=== PATIENT | female | born 1950 | race Caucasian/White ===

== ENCOUNTER → 2016-12-13 | Outpatient (CLI) | payer MEDICARE ==
--- NOTE | 2016-12-13 14:43 | RAD ---
Indication vaginal prolapse. Grayscale imaging was performed. Transabdominal scans were obtained. Transvaginal scans were not. The uterus was prolapsed into the vagina during the exam. Only the fundus of the uterus was seen. The body of the uterus could not be visualized. The ovaries appeared unremarkable. IMPRESSION: Uterine prolapse. As a result there was little visualization of the uterus. The ovaries appeared unremarkable.
--- NOTE | 2016-12-13 15:29 | RAD ---
DATE: 12/13/2016 EXAM: DIGITAL SCREEN BILAT W/CAD HISTORY: Screening COMPARISON: None. This is a new baseline exam. This study was interpreted with the benefit of Computerized Aided Detection (CAD). FINDINGS: Breast Density: HETERO The breast parenchyma Is heterogeneiously dense, which could reduce sensitivity of mammography. Breast parenchyma level C. There is some increased density in the periareolar position of the right breast relative to the left. This is most apparent on the CC image. A few punctate calcifications are seen scattered in this area of increased density. Coned compression imaging as well as an ML view are advised as well as targeted ultrasound. The left breast appears unremarkable. IMPRESSION: Increased density in the right breast relative to the left. Additional imaging suggested as outlined above. BI-RADS CATEGORY: 0 INCOMPLETE: NEED ADDITIONAL IMAGING EVAULATION AND/OR PRIOR MAMMOGRAMS FOR COMPARISON RECOMMENDED FOLLOW-UP: ADD ADDITIONAL IMAGING PQRS compliance statement: Patient information was entered into a reminder system with a target due date soon for the next mammogram. Mammography is a sensitive method for finding small breast cancers, but it does not detect them all and is not a substitute for careful clinical examination. A negative mammogram does not negate a clinically suspicious finding and should not result in delay in biopsying a clinically suspicious abnormality. "Our facility is accredited by the [employer] Mammography Program."
== END | disposition home or self-care (01) ==
LOC: US 13:38
PROVIDERS: ATTEND Nurse Practitioner Family
DX: Z12.31 Encounter for screening mammogram for malignant neoplasm of breast (principal); N81.4 Uterovaginal prolapse, unspecified
CPT/HCPCS: 76856; G0202; 77067

== ENCOUNTER → 2016-12-23 | Outpatient (CLI) | payer MEDICARE ==
--- NOTE | 2016-12-23 11:40 | RAD ---
DATE: 12/23/2016 EXAM: BREAST RIGHT, DIGITAL DIAGNOSTIC RT HISTORY: Call back for density in the right breast COMPARISON: 12/13/2016 This study was interpreted with the benefit of Computerized Aided Detection (CAD). FINDINGS: Breast Density: HETERO The breast parenchyma Is heterogeneiously dense, which could reduce sensitivity of mammography. Breast parenchyma level C. Benign-appearing scattered calcifications identified in the right breast. There is a small nodule identified in the retroareolar region of the right breast containing small calcification On the targeted views of the ultrasound tiny cystic foci identified at 10:00, 11:00, 12:00 position in the retroareolar region with the largest measuring 4.7 mm probably cysts IMPRESSION: Probably benign findings. Recommend right breast mammogram follow-up in 6 months. BI-RADS CATEGORY: 3 PROBABLE BENIGN-SHORT TERM F/U RECOMMENDED FOLLOW-UP: 6M 6 MONTH FOLLOW-UP PQRS compliance statement: Patient information was entered into a reminder system with a target due date 06/22/2017 for the next mammogram. Mammography is a sensitive method for finding small breast cancers, but it does not detect them all and is not a substitute for careful clinical examination. A negative mammogram does not negate a clinically suspicious finding and should not result in delay in biopsying a clinically suspicious abnormality. "Our facility is accredited by the [employer] Mammography Program."
== END | disposition home or self-care (01) ==
LOC: US 09:12
PROVIDERS: ATTEND Nurse Practitioner Family
DX: N63 Unspecified lump in breast (principal); R92.1 Mammographic calcification found on diagnostic imaging of breast
CPT/HCPCS: 76641; G0206; 77065

== ENCOUNTER → 2017-03-07 | Outpatient (CLI) | payer MEDICARE ==
--- NOTE | 2017-03-07 16:17 | RAD ---
Exam: Bone densitometry. Clinical Indication: Postmenopausal screening Technique: Bone Densitometry was performed with dual photon absorption of the lumbar spine and proximal femur. This is a baseline exam. Findings: Lumbar Spine: Bone density is 0.961 g/cm2 for L1-L4. T-Score is -1.8 and Z-score -0.6. Age-matched percentage is 93 %. Left Femur: Bone density is 0.628 g/cm2. T-Score is -3.1 and Z-score -2.2. Age-matched percentage is 70%. Impression: 1. Osteoporosis in the left hip. 2. Osteopenia in the lumbar spine.
== END | disposition home or self-care (01) ==
LOC: DXRAD 15:11
PROVIDERS: ATTEND Specialist
DX: Z00.01 Encounter for general adult medical examination with abnormal findings (principal); Z78.0 Asymptomatic menopausal state; M85.88 Other specified disorders of bone density and structure, other site; Z90.710 Acquired absence of both cervix and uterus; M81.0 Age-related osteoporosis without current pathological fracture
CPT/HCPCS: 77080

== ENCOUNTER → 2017-07-24 | Outpatient (CLI) | payer MEDICARE ==
--- NOTE | 2017-07-24 10:54 | RAD ---
DATE: 07/24/2017 EXAM: MAMMO JEFFRY DIAG RT HISTORY: Follow-up breast nodule COMPARISON: 12/23/2016 This study was interpreted with the benefit of Computerized Aided Detection (CAD). The breast parenchyma is heterogeneously dense, which could reduce sensitivity of mammography. Breast parenchyma level C. FINDINGS: 2-D and 3-D tomosynthesis imaging was performed in CC and MLO projections. The fibroglandular tissues are nodular in character. The small nodule containing a benign type calcification seen in the retroareolar region of the right breast on the previous study is not clearly visualized on today's exam. The previous breast ultrasound demonstrated the presence of multiple small breast cysts. No new or enlarging nodule is seen. No spiculated mass or architectural distortion is evident. IMPRESSION: Stable mammograms without evidence of malignancy. Bilateral mammography in 6 months and then at yearly intervals is suggested. BI-RADS CATEGORY: 2 BENIGN FINDING(S) RECOMMENDED FOLLOW-UP: 6M 6 MONTH FOLLOW-UP PQRS compliance statement: Patient information was entered into a reminder system with a target due date for the next mammogram. Mammography is a sensitive method for finding small breast cancers, but it does not detect them all and is not a substitute for careful clinical examination. A negative mammogram does not negate a clinically suspicious finding and should not result in delay in biopsying a clinically suspicious abnormality. "Our facility is accredited by the [employer] Mammography [employer]."
== END | disposition home or self-care (01) ==
LOC: MAMMO 10:11
PROVIDERS: ATTEND Nurse Practitioner Family
DX: R92.8 Other abnormal and inconclusive findings on diagnostic imaging of breast (principal)
CPT/HCPCS: 77065; G0279; 77061

== ENCOUNTER → 2018-02-28 | Outpatient (CLI) | payer MEDICARE ==
--- NOTE | 2018-02-28 14:16 | RAD ---
DATE: 02/28/2018 EXAM: MAMMO JEFFRY DIAG BILAT HISTORY: 6 month follow-up COMPARISON: 07/24/2017 This study was interpreted with the benefit of Computerized Aided Detection (CAD). Breast Density: HETERO The breast parenchyma is heterogenously dense, which could reduce sensitivity of mammography. Breast parenchyma level C. FINDINGS: 2-D and 3-D tomosynthesis imaging was performed in CC and MLO projections. No new or enlarging breast densities are seen. Scattered benign type calcifications are present. No suspicious microcalcifications are evident. IMPRESSION: Stable mammograms without evidence of malignancy. BI-RADS CATEGORY: 2 BENIGN FINDING(S) RECOMMENDED FOLLOW-UP: 12M 12 MONTH FOLLOW-UP PQRS compliance statement: Patient information was entered into a reminder system with a target due date for the next mammogram. Mammography is a sensitive method for finding small breast cancers, but it does not detect them all and is not a substitute for careful clinical examination. A negative mammogram does not negate a clinically suspicious finding and should not result in delay in biopsying a clinically suspicious abnormality. "Our facility is accredited by the [employer] Mammography Program."
== END | disposition home or self-care (01) ==
LOC: MAMMO 13:03
PROVIDERS: ATTEND Family Medicine
DX: R92.8 Other abnormal and inconclusive findings on diagnostic imaging of breast (principal)
CPT/HCPCS: 77066; G0279; 77062

== ENCOUNTER 2021-01-06 20:17 | Emergency (ER) | payer MEDICARE ==
[~2021-01-06] VITALS: Ht 172.7 cm; Wt 84.1 kg
[2021-01-06] MEDS ORDERED: CLIN-95 PO (20:27)
[2021-01-06] MEDS ORDERED: DEXAMETHASONE 4 MG TABLET PO ONE (20:30)
[2021-01-06] MEDS ORDERED: CLINDAMYCIN HCL 150 MG CAPSULE PO ONE (20:30)
[2021-01-06] MEDS ORDERED: diphenhydrAMINE HCL 25 MG CAPSULE PO ONE (20:30)
--- NOTE | 2021-01-06 20:31 | PHYS DOC ---
Adult General Chief Complaint Chief Complaint: INSECT BITE HPI HPI Patient is a 70-year-old female who presents with a chief complaint of insect bites, that she thinks she sustained while in her apartment. States she seen some wasps around her apartment and thinks that may be what it is. Denies any headache, change in vision, pain or trouble swallowing, chest pain, shortness of breath, wheeze, abdominal pain, nausea, vomiting, diarrhea, lightheadedness. States she otherwise feels well except for some itching around these bites. Review of Systems Review of Systems Review of systems otherwise unremarkable except noted in HPI Physical Exam Physical Exam Constitutional: Well developed, well nourished, no acute distress, non-toxic appearance. [] Eyes: conjunctiva normal, no discharge. [] Cardiovascular:Heart rate regular rhythm, no murmur [] Lungs & Thorax: Bilateral breath sounds clear to auscultation [] Skin: Warm, dry, no erythema, no rash. [] Extremities: On posterior left forearm, there are 3 erythematous lesions 1 with a tiny clear fluid filled vesicle. Some mild erythema surrounding these. Neurovascular exam intact Neurologic: Alert and oriented X 3, no focal deficits noted. [] Psychologic: Affect normal, judgement normal, mood normal. [] EKG EKG [] Radiology/Procedures Radiology/Procedures [] Heart Score C/O Chest Pain: No Risk Factors: Risk Factors: DM, Current or recent (<one month) smoker, HTN, HLP, family history of CAD, obesity. Risk Scores: Risk Factors: DM, Current or recent (<one month) smoker, HTN, HLP, family history of CAD, obesity. Course & Med Decision Making Course & Med Decision Making Patient is a 70-year-old female who presents with insect bites Vital signs not concerning. Physical exam noted above. Given dose of steroids to cover for symptoms of itching and inflammation caused by unknown insect Started on antibiotics to cover for cellulitis. Advised to call primary care physician in the morning to update on ED visit and set up a follow-up. Gave return precautions to the ED. Patient grateful, verbalized understanding and agreed with plan of discharge. [] Dragon Disclaimer Dragon Disclaimer This electronic medical record was generated, in whole or in part, using a voice recognition dictation system. Departure Departure: Impression: Primary Impression: Insect bite Disposition: HOME / SELF CARE / HOMELESS Condition: GOOD Referrals: DANIEL BLACK MD (PCP) Patient Instructions: Insect Bite Additional Instructions: Thank you for coming into the emergency department tonight and allowing us to take care of you. Please read the attached information carefully to go back over things we discussed. You can use Tylenol, ibuprofen, ice, and Benadryl at home as needed for symptom control as we discussed. Please call your primary care physician in the morning to update on your ED visit and set up a follow-up as needed. Please come back with new or concerning symptoms as we discussed. Scripts Clindamycin Hcl (CLINDAMYCIN HCL) 300 Mg Capsule 1 CAP PO TID for cellulitis for 7 Days, #21 CAP Prov: MELLISA TIPTON MD 01/06/21 MELLISA TIPTON MD Jan 06, 2021 20:31
[2021-01-06 20:34] VITALS: BP 185/76
== END 2021-01-06 20:46 | disposition home or self-care (01) ==
LOC: ER 20:17
DX: S50.862A Insect bite (nonvenomous) of left forearm, initial encounter (principal); W57.XXXA Bitten or stung by nonvenomous insect and other nonvenomous arthropods, initial encounter; Y93.89 Activity, other specified; Y92.89 Other specified places as the place of occurrence of the external cause; Y99.8 Other external cause status
CPT/HCPCS: 99284; J8540; Q0163

== ENCOUNTER 2021-04-02 12:49 | Emergency (ER) | payer MEDICARE ==
[~2021-04-02] VITALS: Ht 172.7 cm; Wt 84.1 kg
[~2021-04-02 12:49] MED LIST: CLIN-95 PO
--- NOTE | 2021-04-02 13:02 | PHYS DOC ---
Past History Past Surgical History: Hysterectomy, Other Additional Past Surgical Histo: BLADDER LIFT Alcohol Use: None Adult General Chief Complaint Chief Complaint: MECHANICAL FALL HPI HPI Patient is a 70-year-old female presenting via EMS for an unwitnessed fall. Patient is a poor historian and majority of history obtained from EMS personnel. Patient was reportedly found in home on the ground covered in urine and feces by mu-[employer] members earlier this morning. Per report, patient was noticed to be more confused than usual. Patient last known well was yesterday, patient reports that she fell and was too weak to get up to ambulate so she just laid on the ground. She reports pain to the lower back, right wrist and left elbow with no other complaints. Admits she lives at home alone with her cats, does not take any blood thinners but cannot complete remaining history Review of Systems Review of Systems Fourteen body systems of review of systems have been reviewed. See HPI for pertinent positives and negative responses, other tubbs all other systems are negative, non-pertinent or non-contributory Allergies Allergies Allergies Coded Allergies Type Severity Reaction Last Updated Verified insect venom Allergy Mild 01/06/21 Yes Penicillins Allergy Unknown 01/06/21 Yes Physical Exam Physical Exam Constitutional: Pt is oriented to person, place, and time. Pt appears well-developed and well- nourished. HEENT: Head: Normocephalic and atraumatic. TMs clear, no hemotympanum Conjunctivae and EOM are normal. Pupils are equal, round, and reactive to light. Oropharynx is clear and moist. No hematomas or lacerations or abrasions to face or scalp OP clear, no blood, no malocclusion, dentition intact Nares clear, no nasal septal hematoma Midface stable Neck: C-spine midline nontender, no step-offs Cardiovascular: Normal rate, regular rhythm and normal heart sounds. Pulmonary/Chest: Effort normal and breath sounds normal. No respiratory distress. No wheezes. CTA bilaterally Abdominal: Soft. Bowel sounds are normal. Pt exhibits no distension. There is no tenderness. Musculoskeletal: No bony tenderness to extremities, no deformities, full ROM extremities Chest wall stable Pelvis stable and non-tender No vertebral TTP and spine without stepoffs Neurological: Pt is alert and oriented to person, place, and time. Moving all extremities willfully, able to wiggle all fingers and toes Alert and oriented to person and place but believes year is 1963 Sensation grossly intact Skin: Skin is warm and dry. No abrasions, no lacerations Psychiatric: Behavior is appropriate for situation Current Patient Data Vital Signs Vital Signs Date Time Temp Pulse Resp B/P (MAP) Pulse Ox O2 Delivery O2 Flow Rate FiO2 04/02/21 12:55 98.2 93 16 181/71 (107) 98 Room Air Lab Results Laboratory Tests Test 04/02/21 13:10 04/02/21 14:28 04/02/21 16:10 White Blood Count 11.9 x10^3/uL Red Blood Count 5.10 x10^6/uL Hemoglobin 15.5 g/dL Hematocrit 47.0 % Mean Corpuscular Volume 92 fL Mean Corpuscular Hemoglobin 31 pg Mean Corpuscular Hemoglobin Concent 33 g/dL Red Cell Distribution Width 14.8 % Platelet Count 153 x10^3/uL Neutrophils (%) (Auto) 85 % Lymphocytes (%) (Auto) 9 % Monocytes (%) (Auto) 6 % Eosinophils (%) (Auto) 0 % Basophils (%) (Auto) 0 % Neutrophils # (Auto) 10.1 x10^3uL Lymphocytes # (Auto) 1.1 x10^3/uL Monocytes # (Auto) 0.7 x10^3/uL Eosinophils # (Auto) 0.0 x10^3/uL Basophils # (Auto) 0.1 x10^3/uL Sodium Level 143 mmol/L Potassium Level 4.1 mmol/L Chloride Level 104 mmol/L Carbon Dioxide Level 25 mmol/L Anion Gap 14 Blood Urea Nitrogen 18 mg/dL Creatinine 1.1 mg/dL Estimated GFR (Cockcroft-Gault) 48.8 BUN/Creatinine Ratio 16 Glucose Level 101 mg/dL Lactic Acid Level 3.4 mmol/L 1.9 mmol/L Calcium Level 8.9 mg/dL Total Bilirubin 4.3 mg/dL Aspartate Amino Transf (AST/SGOT) 77 U/L Alanine Aminotransferase (ALT/SGPT) 48 U/L Alkaline Phosphatase 67 U/L Creatine Kinase 2086 U/L Troponin I High Sensitivity 63 ng/L Total Protein 7.7 g/dL Albumin 3.5 g/dL Albumin/Globulin Ratio 0.8 Salicylates Level < 2.8 mg/dL Salicylate Last Dose Date Unknown Salicylate Last Dose Time Unknown Acetaminophen Level < 2 mcg/mL Acetaminophen Last Dose Date Unknown Acetaminophen Last Dose Time Unknown Ethyl Alcohol Level < 10 mg/dL Influenza Type A (Rapid) Negative Influenza Type B (Rapid) Negative SARS-CoV-2 Antigen (Rapid) Negative Current Medications Medications (Trade) Dose Ordered Sig/Lynn Route PRN Reason Start Time Stop Time Status Last Admin Dose Admin Lactated Ringer's 1,000 ml @ 125 mls/hr 1X ONCE IV 04/02/21 14:30 04/02/21 22:29 04/02/21 14:26 Clindamycin Phosphate 50 ml @ 100 mls/hr 1X ONCE IV 04/02/21 16:00 04/02/21 16:29 DC 04/02/21 16:39 EKG EKG EKG ordered and interpreted by myself 1309 hrs. as sinus tachycardia at 110 bpm, unremarkable intervals, left axis deviation, no obvious ischemic findings, no STEMI Radiology/Procedures Radiology/Procedures Study: 1. XR RT WRIST 3VIEWS 2. XR ELBOW_LEFT Indication: Left elbow pain. Fall. Right wrist pain. Comparison: None. Findings: Left elbow: No acute fracture. Alignment is within normal limits. No elbow joint effusion. No retained radiopaque foreign body. Right wrist: Mild soft tissue prominence at the dorsum of the wrist. Minimal irregularity at the scaphoid waist on the oblique view but without a discrete fracture. Alignment is within normal limits to include the scapholunate interval. What is seen of the hand is intact. Mild thumb CMC arthrosis. Impression: Left elbow: 1. No acute fracture or malalignment. Right wrist: 1. Mild soft tissue prominence at the dorsum of the wrist but no fracture is identified. If there is ongoing concern follow-up radiographs could be obtained in 2 weeks to include a dedicated scaphoid view. Electronically signed by: KAREN DURANT MD (04/02/2021 3:05 PM) [facility] ////////////////// STUDY: 1. CT chest without contrast 2. CT abdomen/pelvis without contrast 3. CT lumbar spine without contrast INDICATION: Unwitnessed fall. Pain. COMPARISON: None. TECHNIQUE: Helical CT imaging of the chest, abdomen and pelvis, as well as the lumbar spine, without the use of contrast. Coronal and sagittal reformats were obtained. One or more of the following individualized dose reduction techniques were utilized for this examination: 1. Automated exposure control 2. Adjustment of the mA and/or kV according to patient size 3. Use of iterative reconstruction technique. FINDINGS: CT CHEST: No evidence for acute thoracic aortic injury considering the absence of contrast. Scattered calcific atherosclerosis. Dense mineralization at the aortic valve. No retrosternal hematoma or pericardial effusion. No pathologically enlarged mediastinal or hilar lymph nodes. Scattered groundglass infiltrates on both the right and left. A component of mild volume loss is present. Solid right lower lobe nodule on image 56 series 2 measures up to 0.6 cm AP. Solid nodule at the upper aspect of the right lower lobe measures 1.7 x 1.5 x 1.7 cm. Additional right lower lobe apical segment nodule on image 41 series 2 measures 0.4 cm. A few additional millimetric nodular foci on the right. No significant solid pulmonary nodule on the left. No pleural effusion or pneumothorax. No axillary adenopathy. Unremarkable thyroid. No large body wall hematoma. No displaced rib fracture. The visualized shoulder girdles are intact as is the sternum. No fracture seen throughout the thoracic spine. CT ABDOMEN/PELVIS: Inherently limited study without intravenous contrast. No discrete liver lesion. Solitary large calcified gallstone measuring up to 2.[address] manifestations of cholecystitis. Nondilated biliary tree. Unremarkable pancreas, spleen and adrenal glands. Within normal limits kidneys. No hydronephrosis. Unremarkable bladder. Absent uterus. No adnexal mass. No suspicious colonic wall thickening. Within normal limits course and caliber of small bowel. Unremarkable stomach. Nonaneurysmal aorta. Mild calcific atherosclerosis. No lymphadenopathy. No free fluid or pneumoperitoneum. No large body wall hematoma. No acute fracture seen throughout the pelvis. CT LUMBAR SPINE: Acute burst fracture of L1 with up to 75 percent height loss centrally. Osseous retropulsion at the upper half of the vertebral body measuring up to 0.5 cm. Resultant central canal stenosis estimated at mild/moderate. No acute fracture elsewhere throughout the lumbar spine. Mineralization/ossification along the posterior margin of the L1 spinous process appears chronic with the adjacent spinous process cortex well delineated. No facet joint widening. Minimal degenerative grade 1 anterolisthesis of L4 on L5. Facet arthrosis most pronounced at L4-L5 more so than L5-S1. Mild osseous neural foraminal stenosis at a few levels. Estimated moderate central canal stenosis at L4-L5 but not well characterized. IMPRESSION: CT CHEST: 1. No sequela of acute trauma identified throughout the chest. 2. Solid pulmonary nodule at the upper aspect of the right lower lobe measuring 1.7 x 1.5 x 1.7 cm. A few additional smaller nodules on the right such as within the right lower lobe on image 56 series 2 measuring 0.6 cm. Correlation is needed with any potential outside imaging to determine stability. If none can be obtained or have not been performed, PET/CT is recommended. 3. Scattered groundglass infiltrates. An atypical/viral pneumonia is possible. Correlate with patient symptoms. 4. Mineralization at the aortic valve could result in aortic stenosis. CT ABDOMEN/PELVIS: 1. No acute intra-abdominal or pelvic abnormality. 2. Solitary large gallstone without ancillary findings of cholecystitis. CT LUMBAR SPINE: 1. Acute L1 burst fracture with up to 75% height loss centrally and 0.5 cm osseous retropulsion. Resultant central canal stenosis estimated at mild/moderate. No additional lumbar spine fracture or traumatic listhesis/facet joint widening. 2. Degenerative changes greatest at L4-L5 potentially with moderate central canal stenosis at this level but not well characterized. Electronically signed by: KAREN DURANT MD (04/02/2021 3:32 PM) [facility] ///////////////////// Heart Score C/O Chest Pain: No HEART Score for Chest Pain: HEART Score for Chest Pain Response (Comments) Value History Slighlty/Non-Suspicious 0 ECG Normal 0 Age > 65 2 Risk Factors >3 Risk Factors or Hx CAD 2 Troponin >1-<3x Normal Limit 1 Total 5 Risk Factors: Risk Factors: DM, Current or recent (<one month) smoker, HTN, HLP, family history of CAD, obesity. Risk Scores: Risk Factors: DM, Current or recent (<one month) smoker, HTN, HLP, family history of CAD, obesity. Course & Med Decision Making Course & Med Decision Making Airway patent, breathing unlabored, IV access and vitals obtained concerning for slight hypertension only HPI limited, physical exam and comprehensive ER work-up concerning for elevated troponin in a patient without chest pain, mildly elevated CK, and acute L1 fracture Patient's friend presented at bedside and assisted with history. She is in process of becoming DPOA. Reports last contact with patient was actually We dnes evening, a text ~48 hours prior. She did not hear from patient yesterday or today and so, she visited her today after work Friend confirms patient is on no blood thinners. I disclosed entirety of ER findings and need for hospital transfer as patient is not fit for discharge back home given state of confusion past baseline and fact that she lives alone I contacted [facility] and patient ultimately excepted for hospital transfer after reviewing entirety of ER work-up so far. UA obtained and pending at time of hospital transfer to [facility] via EMS Critical Care Time This patient required critical care. Due to the fact that the patient required a significant amount of one on one physician - patient contact time, ordering and review of studies, arranging urgent treatment with development of a management plan, evaluation of patients response to treatment with frequent reassessments, and discussions with other providers this patient required 35 minutes of critical care time. Critical care time was indicated due to the inherent instability and/or potential for instability in this patient. The critical care time that is allocated to this patient is above and beyond any time spent on any other billable procedures performed on this patient. Dragon Disclaimer Dragon Disclaimer This electronic medical record was generated, in whole or in part, using a voice recognition dictation system. Departure Departure: Impression: Primary Impression: Unwitnessed fall Additional Impressions: Metabolic encephalopathy Aspiration pneumonia Closed L1 vertebral fracture Elevated troponin Disposition: [facility] ([facility]) Admitting Physician: Other (dr harvey) Condition: STABLE Referrals: DANIEL BLACK MD (PCP) Problem Qualifiers REBECCA RG DO Apr 02, 2021 13:02
--- NOTE | 2021-04-02 13:13 | EKG ---
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
[2021-04-02 13:30] LABS: BASO # 0.1 x10^3/uL (0.0-0.2); BASO % 0 % (0-3); EOS % 0 % (0-3); HEMOGLOBIN 15.5 g/dL (12.0-15.5); LYMPH # 1.1 x10^3/uL (1.0-4.8); LYMPH % 9 % (24-48); MEAN CORPUSCULAR HEMOGLOBIN 31 pg (25-35); MEAN CORPUSCULAR HGB CONC 33 g/dL (31-37); MEAN CORPUSCULAR VOLUME 92 fL (79-100); MONO # 0.7 x10^3/uL (0.0-1.1); MONO % 6 % (0-9); NEUT # 10.1 x10^3uL (1.8-7.7); NEUT % 85 % (31-73); PLATELET COUNT 153 x10^3/uL (140-400); RED CELL DISTRIBUTION WIDTH 14.8 % (11.5-14.5); WHITE BLOOD COUNT 11.9 x10^3/uL (4.0-11.0)
[2021-04-02 13:37] LABS: CALCIUM 8.9 mg/dL (8.5-10.1); CREATININE 1.1 mg/dL (0.6-1.0); GFR 48.8; POTASSIUM 4.1 mmol/L (3.5-5.1)
[2021-04-02 13:41] LABS: ETHANOL < 10 mg/dL (0-10)
[2021-04-02 13:42] LABS: ACETAMIN < 2 mcg/mL (10-30)
[2021-04-02 13:43] LABS: SALIC < 2.8 mg/dL (2.8-20.0)
[2021-04-02 13:54] LABS: ALBUMIN 3.5 g/dL (3.4-5.0); ALBUMIN/GLOBULIN RATIO 0.8 (1.0-1.7); TOTAL BILIRUBIN 4.3 mg/dL (0.2-1.0); TOTAL PROTEIN 7.7 g/dL (6.4-8.2)
[2021-04-02] MEDS ORDERED: IV RINGERS SOLUTION,LACTATED 1,000 ML IV ONE (14:30)
--- NOTE | 2021-04-02 15:06 | RAD ---
CT HEAD AND C-SPINE WO History: Reason: Unwitnessed fall, head and neck pain / Spl. Instructions: / History: Comparison: None. Technique: Noncontrast CT imaging was performed of the head and cervical spine. Coronal and sagittal reconstructions were performed. Exposure: One or more of the following individualized dose reduction techniques were utilized for thi s examination: 1. Automated exposure control 2. Adjustment of the mA and/or kV according to patient size 3. Use of iterative reconstruction technique. Findings: Head CT: No intracranial hemorrhage. No mass effect. No hydrocephalus. Mild foci of decreased attenuation within the hemispheric white matter, most often due to chronic isaias rovascular ischemia. Mild brain parenchymal volume loss. Bilateral staphylomas. Imaged paranasal sinuses and mastoid air cells are clear. No acute calvarial f racture. Cervical spine CT: Normal vertebral body height and alignment. No fracture. Mild degenerative disc changes. No high-grade canal narrowing. Multilevel neuroforaminal narrowing. Right lung apex ground glass opacities better evaluated on dedicated chest CT. Tonsilliths noted. Impression: Head CT: 1. No acute intracranial abnormality. Cervical spine CT: 1. No acute fracture or subluxation of the cervical spine. Electronically signed by: Julius Marin DO (04/02/2021 3:03 PM) [facility]
[2021-04-02 15:07] LABS: INFLUENZA A PATIENT NEGATIVE (NEGATIVE); INFLUENZA B PATIENT NEGATIVE (NEGATIVE)
--- NOTE | 2021-04-02 15:07 | RAD ---
Study: 1. XR RT WRIST 3VIEWS 2. XR ELBOW_LEFT Indication: Left elbow pain. Fall. Right wrist pain. Comparison: None. Findings: Left elbow: No acute fracture. Alignment is within normal limits. No elbow joint effusion. No retained radiopaque foreign body. Right wrist: Mild soft tissue prominence at the dorsum of the wrist. Minimal irregularity at the scaphoid waist on the oblique view but without a discrete fracture. Alignment is within normal limits to include the s capholunate interval. What is seen of the hand is intact. Mild thumb CMC arthrosis. Impression: Left elbow: 1. No acute fracture or malalignment. Right wrist: 1. Mild soft tissue prominence at the dorsum of the wrist but no fracture is identified. If there is ongoing concern follow-up radiographs could be obtained in 2 weeks to include a dedicated scaphoid vi ew. Electronically signed by: KAREN DURANT MD (04/02/2021 3:05 PM) [facility]
--- NOTE | 2021-04-02 15:35 | RAD ---
STUDY: 1. CT chest without contrast 2. CT abdomen/pelvis without contrast 3. CT lumbar spine without contrast INDICATION: Unwitnessed fall. Pain. COMPARISON: None. TECHNIQUE: Helical CT imaging of the chest, abdomen and pelvis, as well as the lumbar spine, without the use of contrast. Coronal and sagittal reformats were obtained. One or more of the following individualized dose reduction techniques were utilized for this examinat ion: 1. Automated exposure control 2. Adjustment of the mA and/or kV according to patient size 3. Use of iterative reconstruction technique. FINDINGS: CT CHEST: No evidence for acute thoracic aortic injury considering the absence of contrast. Scattered calcific atherosclerosis. Dense mineralization at the aortic valve. No retrosternal hematoma or pericardial ef fusion. No pathologically enlarged mediastinal or hilar lymph nodes. Scattered groundglass infiltrates on both the right and left. A component of mild volume loss is pres ent. Solid right lower lobe nodule on image 56 series 2 measures up to 0.6 cm AP. Solid nodule at the upper aspect of the right lower lobe measures 1.7 x 1.5 x 1.7 cm. Additional right lower lobe apical segment nodule on image 41 series 2 measures 0.4 cm. A few additional millimetric nodular foci on th e right. No significant solid pulmonary nodule on the left. No pleural effusion or pneumothorax. No axillary adenopathy. Unremarkable thyroid. No large body wall hematoma. No displaced rib fracture. The visualized shoulder girdles are intact as is the sternum. No fracture seen throughout the thoracic spine. CT ABDOMEN/PELVIS: Inherently limited study without intravenous contrast. No discrete liver lesion. Solitary large calcified gallstone measuring up to 2.[address] manifestations of cholecystitis. Nondilated biliary tree. Unremarkable pancreas, spleen and adrenal glands. Within normal limits kidneys. No hydronephrosis. Unremarkable bladder. Absent uterus. No adne xal mass. No suspicious colonic wall thickening. Within normal limits course and caliber of small bowel. Unrema rkable stomach. Nonaneurysmal aorta. Mild calcific atherosclerosis. No lymphadenopathy. No free fluid or pneumoperito neum. No large body wall hematoma. No acute fracture seen throughout the pelvis. CT LUMBAR SPINE: Acute burst fracture of L1 with up to 75 percent height loss centrally. Osseous retropulsion at the u pper half of the vertebral body measuring up to 0.5 cm. Resultant central canal stenosis estimated at mild/moderate. No acute fracture elsewhere throughout the lumbar spine. Mineralization/ossification along the posterior margin of the L1 spinous process appears chronic with the adjacent spinous proces s cortex well delineated. No facet joint widening. Minimal degenerative grade 1 anterolisthesis of L4 on L5. Facet arthrosis most pronounced at L4-L5 mo re so than L5-S1. Mild osseous neural foraminal stenosis at a few levels. Estimated moderate central canal stenosis at L4-L5 but not well characterized. IMPRESSION: CT CHEST: 1. No sequela of acute trauma identified throughout the chest. 2. Solid pulmonary nodule at the upper aspect of the right lower lobe measuring 1.7 x 1.5 x 1.7 cm. A few additional smaller nodules on the right such as within the right lower lobe on image 56 series 2 measuring 0.6 cm. Correlation is needed with any potential outside imaging to determine stability. If none can be obtained or have not been performed, PET/CT is recommended. 3. Scattered groundglass infiltrates. An atypical/viral pneumonia is possible. Correlate with patien t symptoms. 4. Mineralization at the aortic valve could result in aortic stenosis. CT ABDOMEN/PELVIS: 1. No acute intra-abdominal or pelvic abnormality. 2. Solitary large gallstone without ancillary findings of cholecystitis. CT LUMBAR SPINE: 1. Acute L1 burst fracture with up to 75% height loss centrally and 0.5 cm osseous retropulsion. Res ultant central canal stenosis estimated at mild/moderate. No additional lumbar spine fracture or trau matic listhesis/facet joint widening. 2. Degenerative changes greatest at L4-L5 potentially with moderate central canal stenosis at this l evel but not well characterized. Electronically signed by: KAREN DURANT MD (04/02/2021 3:32 PM) [facility]
[2021-04-02] MEDS ORDERED: CLINDAMYCIN 600MG PREMIX 50 ML IV ONE (16:00)
[2021-04-02 16:54] VITALS: BP 142/61
[2021-04-02 17:08] LABS: BARBITURATES NEG (NEG); BENZODIAZEPINES NEG (NEG); CANNABINOIDS NEG (NEG); COCAINE NEG (NEG); METHADONE NEG (NEG); OPIATES NEG (NEG); PHENCYCLIDINE NEG (NEG)
[2021-04-02 17:10] LABS: AMPHETAMINE/METHAMPHETAMINE NEG (NEG)
[2021-04-02 17:13] LABS: BILIRUBIN,URINE SMALL (NEG); CLARITY,URINE CLEAR; COLOR,URINE YELLOW; GLUCOSE,URINE NEG (NEG)
[2021-04-02 17:14] LABS: BACTERIA,URINE FEW /HPF (0-FEW); NITRITE,URINE NEG (NEG); RBC,URINE OCC /HPF (0-2); SQUAMOUS EPITHELIAL CELL,UR MOD /LPF; UROBILINOGEN,URINE 0.2 mg/dL (0.2 mg/dL)
== END 2021-04-02 17:03 | disposition short-term general hospital (02) ==
LOC: ER 12:49
DX: S32.019A Unspecified fracture of first lumbar vertebra, initial encounter for closed fracture (principal); G93.41 Metabolic encephalopathy; R77.8 Other specified abnormalities of plasma proteins; J69.0 Pneumonitis due to inhalation of food and vomit; M25.531 Pain in right wrist; M25.522 Pain in left elbow; Z20.822 Contact with and (suspected) exposure to COVID-19; Z91.038 Other insect allergy status; Z88.0 Allergy status to penicillin; W18.39XA Other fall on same level, initial encounter; Y93.89 Activity, other specified; Y92.89 Other specified places as the place of occurrence of the external cause; Y99.8 Other external cause status
CPT/HCPCS: 36415; 70450; 71250; 72125; 73070; 73110; 74176; 76376; 80053; 80307; 80329; 81001; 82550; 83605; 84484; 85025; 87040; 87086; 93005; 96361; 96365; 99291; C9803; G0480; J3490; J7120; U0003